=== PATIENT | female | born 1965 | race Caucasian/White ===

== ENCOUNTER 2017-04-08 22:39 | Emergency (ER) | payer SELFPAY ==
[~2017-04-08] VITALS: Ht 157.5 cm; Wt 90.9 kg
[2017-04-09] MEDS ORDERED: AUGMENTIN875 MG PO (00:17)
[2017-04-09] MEDS ORDERED: MUCINEX D ER T1 EAC1 PO (00:17)
[2017-04-09] MEDS ORDERED: FLONASE16 G1 BOTH NARES (00:17)
[2017-04-09] MEDS ORDERED: TYLENOL WITH C1 EACH PO (00:17)
[2017-04-09 00:25] VITALS: BP 110/70
== END 2017-04-09 00:26 | disposition home or self-care (01) ==
LOC: EME 22:39
DX: J01.90 Acute sinusitis, unspecified (principal); H66.93 Otitis media, unspecified, bilateral; Z87.891 Personal history of nicotine dependence
CPT/HCPCS: 99281; 99284